=== PATIENT | female | born 1975 | race Caucasian/White ===

== ENCOUNTER 2017-07-11 20:06 | Emergency (ER) | payer MEDICAID ==
[~2017-07-11] VITALS: Ht 162.6 cm; Wt 81.6 kg
[2017-07-11 20:21] VITALS: BP 140/87
== END 2017-07-12 | disposition left against medical advice (07) ==
LOC: ER 20:26
DX: S61.011A Laceration without foreign body of right thumb without damage to nail, initial encounter (principal); Z53.21 Procedure and treatment not carried out due to patient leaving prior to being seen by health care provider; W54.0XXA Bitten by dog, initial encounter; Y93.89 Activity, other specified; Y99.8 Other external cause status; Y92.89 Other specified places as the place of occurrence of the external cause

== ENCOUNTER 2017-07-25 10:13 | Emergency (ER) | payer BC, MEDICAID ==
[~2017-07-25] VITALS: Ht 165.1 cm; Wt 83.9 kg
[2017-07-25 11:49] VITALS: BP 133/90
== END 2017-07-25 12:02 | disposition home or self-care (01) ==
LOC: ER 10:13
DX: S61.011D Laceration without foreign body of right thumb without damage to nail, subsequent encounter (principal); X58.XXXD Exposure to other specified factors, subsequent encounter; Y92.89 Other specified places as the place of occurrence of the external cause; Y99.8 Other external cause status

== ENCOUNTER 2018-09-15 07:50 | Inpatient (IN) | payer BC ==
[~2018-09-15] VITALS: Ht 165.1 cm; Wt 12.0 kg
[~2018-09-15 07:50] MED LIST: LISI2.5T47 PO
[2018-09-15] MEDS ORDERED: LIDOCAINE 2%HCL (LOCAL ANESTH.) INJ 20ML MDV ONE (09:14)
[2018-09-15] MEDS ORDERED: fentaNYL CITRATE 100 MCG/2 ML VL ONE (09:31)
[2018-09-15] MEDS ORDERED: MIDAZOLAM HCL 1MG/1ML-2 ML VIAL ONE (09:31)
[2018-09-15] MEDS ORDERED: CLOPIDOGREL BISULFATE 75 MG TAB ONE (11:04)
[2018-09-15] MEDS ORDERED: SUCRALFATE 1 GM TAB PO SCH (11:30)
[2018-09-15] MEDS ORDERED: NITROGLYCERIN 0.4 MG SL TAB SL PRN (11:30)
[2018-09-15] MEDS ORDERED: ONDANSETRON HCL 4 MG/2 ML VIAL IV PRN (11:30)
[2018-09-15] MEDS ORDERED: HYDROcodone-ACET 5/325MG TAB PO PRN (11:30)
[2018-09-15 13:00] VITALS: BP 114/75
[2018-09-15 13:02] VITALS: BP 114/75
[2018-09-15] MEDS: SODIUM CHLOR 0.9% PF (SALINE LOCK) 10ML VIAL/SYR IV SCH ×2 (14:53→20:49)
[2018-09-15 17:00] VITALS: BP 114/74
[2018-09-15] MEDS: SUCRALFATE 1 GM TAB PO SCH (17:31)
[2018-09-15 20:00] VITALS: BP 118/74
[2018-09-15 22:00] VITALS: BP 118/74
[2018-09-16 05:00] VITALS: BP 106/70
[2018-09-16] MEDS: SODIUM CHLOR 0.9% PF (SALINE LOCK) 10ML VIAL/SYR IV SCH (05:17)
[2018-09-16] MEDS: SUCRALFATE 1 GM TAB PO SCH ×2 (05:17→12:45)
[2018-09-16 06:24] LABS: Basophils # (auto) 0.1 uL; Basophils % (auto) 0.7 % (0.0-2.0); Eosinophils # (auto) 0.2 uL; Eosinophils % (auto) 2.5 % (0.0-7.0); Hematocrit 33.8 % (36.0-46.0); Hemoglobin 11.4 g/dL (12.2-16.2); Lymphocytes # (auto) 2.4 uL; Lymphocytes % (auto) 33.6 % (10.0-50.0); Mean Corpuscular Hemoglobin 31.1 pg (28.0-32.0); Mean Corpuscular Hgb Conc. 33.7 g/dL (32.0-36.0); Mean Corpuscular Volume 92.4 fL (80.0-100.0); Monocytes # (auto) 0.5 uL; Monocytes % (auto) 7.5 % (0.0-12.0); Neutrophils % (auto) 55.7 % (37.0-80.0); Platelet Count (auto) 192 10^3/uL (140-450); Red Blood Cells 3.66 10^6/uL (4.0-5.20); Red Cell Distribution Width 12.9 % (11.8-14.3); White Blood Cell 7.2 10^3/uL (4.4-10.8)
[2018-09-16 06:48] LABS: Calcium 8.1 mg/dL (8.5-10.1); Potassium 4.1 mmol/L (3.5-5.1)
[2018-09-16 09:00] VITALS: BP 109/62
[2018-09-16] MEDS ORDERED: CLOPIDOGREL BISULFATE 75 MG TAB PO SCH (10:00)
[2018-09-16] MEDS ORDERED: PANTOPRAZOLE 40 MG TAB PO SCH (10:00)
[2018-09-16 13:00] VITALS: BP 102/56
[2018-09-16] MEDS ORDERED: CLOP75TA28 PO (13:52)
[2018-09-16 14:17] VITALS: BP 102/56
== END 2018-09-16 15:00 | disposition home or self-care (01) | DRG 274 ==
LOC: CATH 07:50 → TELE-WESTW 07:51
PROVIDERS: ADMIT Specialist; ATTEND Specialist
PROC: 02583ZZ Destruction of Conduction Mechanism, Percutaneous Approach (ICD-10-PCS; principal; 2018-09-15)
PROC: 02K83ZZ Map Conduction Mechanism, Percutaneous Approach (ICD-10-PCS; 2018-09-15)
PROC: 4A023FZ Measurement of Cardiac Rhythm, Percutaneous Approach (ICD-10-PCS; 2018-09-15)
PROC: 4A0234Z Measurement of Cardiac Electrical Activity, Percutaneous Approach (ICD-10-PCS; 2018-09-15)
DX: I47.1 Supraventricular tachycardia (principal)
CPT/HCPCS: 36415; 80048; 84702; 85025; 99152; A6257; G0378; J2250; J2405